=== PATIENT | male | born 2000 | race Caucasian/White ===

== ENCOUNTER 2020-05-01 12:23 | Inpatient (IN) ==
[2020-05-01] MEDS ORDERED: ONDANSETRON INJ 2 MG/ML 2 ML VIAL IV STA ×3 (12:49→18:23)
[2020-05-01] MEDS ORDERED: SODIUM CHLORIDE 0.9% 1000ML 2,000 ML IV ONE (12:49)
--- NOTE | 2020-05-01 12:52 | Emergency Department Note ---
Impression & Plan Pneumomediastinum, Vomiting, Acute hypokalemia, MIGUELINA (acute kidney injury), Leukocytosis, Pneumothorax ED Provider Note NAME: DARRICK PIERCE AGE: 19 SEX: M : 2000 ARRIVES VIA: Walk-In INFORMANT: Patient ED PROVIDER(S): Albert Calvin DO CHIEF COMPLAINT: Nausea vomiting HPI: Patient is a 19-year-old male with no significant past medical or past surgical history who presents the ER for nausea and vomiting. This started Friday morning. He notes Friday night he drank over 15 beers. When he woke up he was having persistent vomiting. This has continued. He has been unable to keep down liquids. He denies any belly pain. He notes he is vomiting up bile or anything that he eats or drinks. Denies any dysuria, urgency or frequency. No belly pain but significant amount of nausea. No previous surgeries on his belly. Denies any cough or runny nose. Admits to a sore throat but this is consistent with the vomiting. No other exacerbating or araceli tting factors. ROS: See above HPI for pertinent positives & negatives. A total of 10 systems reviewed and were otherwise negative. PAST MEDICAL HISTORY:See Below PAST SURGICAL HISTORY:See Below FAMILY HISTORY:See Below SOCIAL HISTORY:See Below HOME MEDICATIONS:See Below ALLERGIES:See Below VITALS:See Below PHYSICAL EXAMINATION: GENERAL: Sitting up in bed, alert, well appearing, well nourished, no distress, non-toxic EYE EXAM: normal conjunctiva. OROPHARYNX: no exudate, no erythema, lips, buccal mucosa, and tongue normal and mucous membranes are moist NECK: supple, no nuchal rigidity, no adenopathy, non-tender LUNGS: Clear to auscultation. Normal chest wall mechanics HEART: no murmurs, S1 normal and S2 normal ABDOMEN: abdomen soft, non-tender, normo-active bowel sounds, no masses, no rebound or guarding. BACK: Back is symmetrical on inspection and there is no deformity, no midline tenderness, no CVA tenderness. SKIN: no rashes and no bruising UPPER EXTREMITIES: upper extremities are grossly normal. LOWER EXTREMITIES: No pitting edema. NEURO EXAM: Normal sensorium, cranial nerves II-XII grossly intact, normal speech, no gross weakness of arms, no gross weakness of legs. MEDICAL DECISION MAKING: Patient is a 19-year-old male who presents the ER for persistent vomiting. He is unable to keep anything down. This been present since this past Friday. IV was established blood work was obtained. Labs show leukocytosis 21,000. No significant anemia. BMP with hyponatremia 134 and hypokalemia 3.2. Chloride also slightly low at 92. Creatinine elevated 1.6 but nothing to compare to. Fevers baseline likely around 0.81. Bilirubin of 1.1. Calcium slightly elevated 10.9. Lipase was normal. UA was clean. CT abdomen pelvis was obtained and showed pneumomediastinum. Chest x-ray confirmed this with a questionable pneumothorax. Discussed with Dr. Bautista from [place] [facility]. He recommended Gastrografin swallow as well as CT of the chest. This was performed and showed no esophageal injury. We discussed the case with him and he was comfortable keeping him in the hospital. He recommended placing him on nonrebreather and admitting him to medicine and they will further evaluate him. Discussed the case with Dylan Gomez from gastroenterology. They will follow him up as an inpatient and he recommended a PPI. Patient was given a total of 4 L of normal saline. He was covered with IV Zosyn initially and given IV vitamin K. He was updated bedside on multiple occasions and discussed with the hospitalist for further evaluation. Patient notes after nonrebreather was placed that he cannot wear it and is too uncomfortable. He was placed on 5 L nasal cannula instead. He was placed on nonrebreather and not secondary to hyp oxia but for treatment of the pneumothoraces. Triage Nursing notes reviewed. Prior medical records reviewed Vital Signs: reviewed and remarkable for tachycardic Differential diagnosis: Differential diagnoses includes but is not limited to gastritis, peptic ulcer disease, GERD, gallbladder disease, pancreatitis, small bowel obstruction, acute coronary syndrome, pericarditis, ischemic bowel, irritable bowel disease, irritable bowel syndrome, appendicitis, diverticulitis, malignancy, hernia, urinary tract infection, torsion, perforation, trauma, infectious. ER treatment provided: See below Diagnostics interpreted by me: ECG: none Cardiac Monitoring: An order was placed for continuous cardiac monitoring. The monitor shows a rate of 83 with sinus rhythm. Laboratory studies: As stated above and show below. Imaging studies: CTs chest x-rays as discussed above in the MDM Consultation(s): Discussed with Dr. Bautista as stated above in MDM Discussed with Dr. Dylan Gomez from gastroenterology has stated above Discussed with Dr. Palomo from [facility] hospitalist ED COURSE: Procedures: none Past Med/Surg History Social History Smoking Status: Never smoker Preferred Language: Telugu Feels Safe at Home: Yes Allergies Allergies Allergy/AdvReac Type Severity Reaction Status Date / Time No Known Allergies Allergy Unverified 05/01/20 14:53 Home Meds Home Medications Medication Instructions Recorded Confirmed No Known Home Medications 05/01/20 05/01/20 Results & Data (ED) Vital Signs Vital Signs - 24 hr 05/01/20 12:26 05/01/20 13:26 05/01/20 13:29 Temperature 36.9 C Temperature Source Oral Pulse Rate 122 H 87 85 Pulse Rate [Finger] 93 H Pulse Rate from SpO2 Sensor 86 85 Respiratory Rate 18 17 11 L Respiratory Effort / Characteristics Non-Labored Spontaneous Non-Labored Spontaneous Respiratory Depth Normal Normal Respiratory Pattern Regular Regular Blood Pressure 129/86 140/81 Blood Pressure [Left Arm] 140/81 Blood Pressure Mean 100 96 Blood Pressure Mean [Left Arm] 100 Blood Pressure Position Sitting Pulse Oximetry 96 96 94 Oxygen Delivery Method Room Air Room Air Room Air Oxygen Flow Rate Sepsis Recent Fever Within 48 Hours No Sepsis New/Unexplained Change in Mental Status N/A Sepsis Action Taken by Nursing No Action Required 05/01/20 13:30 05/01/20 13:40 05/01/20 13:50 Temperature Temperature Source Pulse Rate 74 79 91 H Pulse Rate [Finger] Pulse Rate from SpO2 Sensor 74 83 85 Respiratory Rate 16 14 15 Respiratory Effort / Characteristics Respiratory Depth Respiratory Pattern Blood Pressure 154/76 H Blood Pressure [Left Arm] Blood Pressure Mean 105 Blood Pressure Mean [Left Arm] Blood Pressure Position Pulse Oximetry 98 95 97 Oxygen Delivery Method Room Air Room Air Room Air Oxygen Flow Rate Sepsis Recent Fever Within 48 Hours Sepsis New/Unexplained Change in Mental Status Sepsis Action Taken by Nursing 05/01/20 14:00 05/01/20 14:10 05/01/20 14:20 Temperature Temperature Source Pulse Rate 87 89 84 Pulse Rate [Finger] Pulse Rate from SpO2 Sensor 87 88 84 Respiratory Rate 13 14 20 Respiratory Effort / Characteristics Respiratory Depth Respiratory Pattern Blood Pressure 121/75 Blood Pressure [Left Arm] Blood Pressure Mean 106 Blood Pressure Mean [Left Arm] Blood Pressure Position Pulse Oximetry 98 99 97 Oxygen Delivery Method Room Air Room Air Room Air Oxygen Flow Rate Sepsis Recent Fever Within 48 Hours Sepsis New/Unexplained Change in Mental Status Sepsis Action Taken by Nursing 05/01/20 15:16 05/01/20 15:18 05/01/20 15:20 Temperature Temperature Source Pulse Rate 93 H 96 H 84 Pulse Rate [Finger] Pulse Rate from SpO2 Sensor Respiratory Rate 12 16 17 Respiratory Effort / Characteristics Respiratory Depth Respiratory Pattern Blood Pressure 141/80 H Blood Pressure [Left Arm] Blood Pressure Mean 106 Blood Pressure Mean [Left Arm] Blood Pressure Position Pulse Oximetry Oxygen Delivery Method Room Air Room Air Room Air Oxygen Flow Rate Sepsis Recent Fever Within 48 Hours Sepsis New/Unexplained Change in Mental Status Sepsis Action Taken by Nursing 05/01/20 15:30 05/01/20 15:40 05/01/20 15:50 Temperature Temperature Source Pulse Rate 90 75 69 Pulse Rate [Finger] Pulse Rate from SpO2 Sensor Respiratory Rate 13 18 12 Respiratory Effort / Characteristics Respiratory Depth Respiratory Pattern Blood Pressure 142/67 H Blood Pressure [Left Arm] Blood Pressure Mean 100 Blood Pressure Mean [Left Arm] Blood Pressure Position Pulse Oximetry Oxygen Delivery Method Room Air Room Air Room Air Oxygen Flow Rate Sepsis Recent Fever Within 48 Hours Sepsis New/Unexplained Change in Mental Status Sepsis Action Taken by Nursing 05/01/20 16:08 05/01/20 16:10 05/01/20 16:13 Temperature Temperature Source Pulse Rate 86 93 H 67 Pulse Rate [Finger] Pulse Rate from SpO2 Sensor 96 H 72 Respiratory Rate 8 L 15 17 Respiratory Effort / Characteristics Respiratory Depth Respiratory Pattern Blood Pressure 134/52 L Blood Pressure [Left Arm] Blood Pressure Mean 95 Blood Pressure Mean [Left Arm] Blood Pressure Position Pulse Oximetry 98 96 Oxygen Delivery Method Room Air Room Air Room Air Oxygen Flow Rate Sepsis Recent Fever Within 48 Hours Sepsis New/Unexplained Change in Mental Status Sepsis Action Taken by Nursing 05/01/20 16:20 05/01/20 16:30 05/01/20 16:40 Temperature Temperature Source Pulse Rate 81 68 72 Pulse Rate [Finger] Pulse Rate from SpO2 Sensor 83 69 69 Respiratory Rate 20 17 24 Respiratory Effort / Characteristics Respiratory Depth Respiratory Pattern Blood Pressure 131/66 Blood Pressure [Left Arm] Blood Pressure Mean 83 Blood Pressure Mean [Left Arm] Blood Pressure Position Pulse Oximetry 98 98 97 Oxygen Delivery Method Room Air Room Air Room Air Oxygen Flow Rate Sepsis Recent Fever Within 48 Hours Sepsis New/Unexplained Change in Mental Status Sepsis Action Taken by Nursing 05/01/20 16:50 05/01/20 16:51 Temperature Temperature Source Pulse Rate 85 Pulse Rate [Finger] Pulse Rate from SpO2 Sensor 82 Respiratory Rate 17 Respiratory Effort / Characteristics Respiratory Depth Respiratory Pattern Blood Pressure Blood Pressure [Left Arm] Blood Pressure Mean Blood Pressure Mean [Left Arm] Blood Pressure Position Pulse Oximetry 99 Oxygen Delivery Method Room Air Non-rebreather Oxygen Flow Rate 15 Sepsis Recent Fever Within 48 Hours Sepsis New/Unexplained Change in Mental Status Sepsis Action Taken by Nursing Laboratory Data Result diagrams: 05/01/20 12:55 05/01/20 12:55 Lab Results 05/01/20 05/01/20 05/01/20 Range/Units 12:55 12:55 14:30 WBC 21.57 H (4.8-10.8) K/uL RBC 6.00 (4.7-6.1) M/uL Hgb 17.9 (14.0-18.0) g/dL Hct 50.3 (42-52) % MCV 83.8 (80-100) fL MCH 29.8 (25-34) pg MCHC 35.6 (32-36) g/dL RDW Std Deviation 39.4 (36.4-46.3) fL RDW Coeff of Jan 13.0 (11.5-14.5) % Plt Count 340 (130-400) K/uL MPV 10.8 H (7.4-10.4) fL Neutrophils % (Manual) 86.0 % Lymphocytes % (Manual) 2.6 % Monocytes % (Manual) 11.4 % Neutrophils # (Manual) 18.55 H (1.4-6.5) K/uL Total Absolute Neuts 18.55 H (1.4-6.5) K/uL Lymphocytes # (Manual) 0.56 L (1.2-3.4) K/uL Total Abs Lymphocytes 0.56 L (1.2-3.4) K/uL Monocytes # (Manual) 2.46 H (0.11-0.59) K/uL Sodium 134 L (136-145) mmol/L Potassium 3.2 L (3.5-5.1) mmol/L Chloride 92 L (98-107) mmol/L Carbon Dioxide 31 (21-32) mmol/L Anion Gap 11.0 (3-11) BUN 37 H (7-18) mg/dl Creatinine 1.61 H (0.6-1.4) mg/dl Est Cr Clr Drug Dosing 68.7 ml/min Est GFR ( Amer) 70.8 Est GFR (Non-Af Amer) 61.1 BUN/Creatinine Ratio 23.2 H (10-20) Glucose 147 H (70-99) mg/dl Calcium 10.8 H (8.5-10.1) mg/dl Total Bilirubin 1.1 H (0.2-1) mg/dl AST 15 (15-37) U/L ALT 31 (12-78) U/L Alkaline Phosphatase 120 H (45-117) U/L Total Protein 9.5 H (6.4-8.2) gm/dl Albumin 5.5 H (3.4-5.0) gm/dl Globulin 4.0 (2.5-4.0) gm/dl Albumin/Globulin Ratio 1.4 (0.9-2) Lipase 95 (73-393) U/L Urine Color Yellow Urine Appearance Clear (Clear) Urine pH >= 9.0 H (4.5-7.5) Ur Specific [place] 1.026 (1.000-1.030) Urine Protein 2+ H (Negative) Urine Glucose (UA) Negative (Negative) Urine Ketones 1+ H (Negative) Urine Blood Negative (Negative) Urine Nitrite Negative (Negative) Urine Bilirubin Negative (Negative) Urine Urobilinogen Negative (Negative) Ur Leukocyte Esterase Negative (Negative) Urine WBC (Auto) 1-5 (0-5) /hpf Urine RBC (Auto) 0-4 (0-4) /hpf U Hyaline Cast (Auto) 1-5 (0-5) /lpf U Epithel Cells (Auto) 5-10 H (0-5) /lpf Urine Bacteria (Auto) Negative (Negative) Administered Medications Miscellaneous Information (Piperacill/Tazobac Consult Active) 1 ea N/A UD PRN PRN Reason: Consult Stop: 05/31/20 15:20 Last Admin: 05/01/20 15:50 Dose: 1 ea Documented by: [id number] Discontinued Medications Sodium Chloride (Nss 1000ml) 2,000 mls @ 999 mls/hr IV .Q2H1M ONE Stop: 05/01/20 14:49 Last Infusion: 05/01/20 15:45 Dose: 0 mls/hr Documented by: [id number] Admin: 05/01/20 13:24 Dose: 999 mls/hr Documented by: [id number] Sodium Chloride (Nss 1000ml) 1,000 mls @ 999 mls/hr IV .Q1H1M ONE Stop: 05/01/20 15:47 Last Infusion: 05/01/20 17:05 Dose: 0 mls/hr Documented by: [id number] Admin: 05/01/20 15:50 Dose: 999 mls/hr Documented by: [id number] Piperacillin Sod/Tazobactam Sod (Zosyn) 4.5 gm in 120 mls @ 240 mls/hr IV NOW ONE Stop: 05/01/20 15:50 Last Admin: 05/01/20 16:41 Dose: 240 mls/hr Documented by: [id number] Ioversol (Ioversol 100ml) 94 ml IV ONCE ONE Stop: 05/01/20 15:11 Last Admin: 05/01/20 15:10 Dose: 94 ml Documented by: [id number] Ondansetron HCl (Ondansetron Inj 2 Mg/Ml 2 Ml Vial) 4 mg IV NOW STA Stop: 05/01/20 12:50 Last Admin: 05/01/20 13:24 Dose: 4 mg Documented by: [id number] Ondansetron HCl (Ondansetron Inj 2 Mg/Ml 2 Ml Vial) 4 mg IV NOW STA Stop: 05/01/20 15:45 Last Admin: 05/01/20 15:50 Dose: 4 mg Documented by: [id number] Discharge Plan Visit Data Chief Complaint: Vomiting Stated Complaint: VOMITING AND CHILLS ED Provider: Albert Calvin Discharge Problem: Pneumomediastinum, Vomiting, Acute hypokalemia, MIGUELINA (acute kidney injury), Leukocytosis, Pneumothorax Forms Stand Alone Forms: [employer] Prescriptions Prescriptions: No Action No Known Home Medications RF: 0 Discharge Problem: Vomiting Qualifiers: Vomiting type: unspecified Vomiting Intractability: unspecified Nausea presence: unspecified Qualified Code(s): R11.10 - Vomiting, unspecified Leukocytosis Qualifiers: Leukocytosis type: unspecified Qualified Code(s): D72.829 - Elevated white blood cell count, unspecified Pneumothorax Qualifiers: Pneumothorax type: unspecified pneumothorax Qualified Code(s): J93.9 - Pneumothorax, unspecified
[2020-05-01 13:12] LABS: Mean Corpuscular Hgb Conc 35.6 g/dL (32-36); Mean Platelet Volume 10.8 fL (7.4-10.4); Platelet Count 340 K/uL (130-400)
[2020-05-01 13:35] LABS: ALC (manual) 0.56 K/uL (1.2-3.4); ANC (manual) 18.55 K/uL (1.4-6.5); Hematocrit (blood only) 50.3 % (42-52); Hemoglobin 17.9 g/dL (14.0-18.0); Lymphocytes # (manual) 0.56 K/uL (1.2-3.4); Lymphocytes % (manual) 2.6 %; Mean Corpuscular Hemoglobin 29.8 pg (25-34); Mean Corpuscular Volume 83.8 fL (80-100); Monocytes # (manual) 2.46 K/uL (0.11-0.59); Monocytes % (manual) 11.4 %; Neutrophils # (manual) 18.55 K/uL (1.4-6.5); RDW Standard Deviation 39.4 fL (36.4-46.3); White Blood Count 21.57 K/uL (4.8-10.8)
[2020-05-01 13:47] LABS: Albumin Level 5.5 gm/dl (3.4-5.0); BUN Creatinine Ratio 23.2 (10-20); Calcium 10.8 mg/dl (8.5-10.1); Creatinine Clr Calc Pharmacy 68.7 ml/min; Est GFR (African American) 70.8; Est GFR (Non-African American) 61.1; Potassium 3.2 mmol/L (3.5-5.1)
[2020-05-01 13:50] LABS: Albumin Globulin Ratio 1.4 (0.9-2); Bilirubin,Total 1.1 mg/dl (0.2-1); Total Protein 9.5 gm/dl (6.4-8.2)
[2020-05-01] MEDS ORDERED: SODIUM CHLORIDE 0.9% 1000ML 1,000 ML IV ONE (14:47)
[2020-05-01 15:00] LABS: Appearance Urine Clear (Clear); Bacteria Urine Automated Negative (Negative); Bilirubin Urine Negative (Negative); Blood Urine Negative (Negative); Color Urine Yellow; Glucose Urine UA Negative (Negative); Ketones Urine 1+ (Negative); Leukocyte Esterase Urine Negative (Negative); Nitrite Urine Negative (Negative); RBC Urine Automated 0-4 /hpf (0-4); Specific Gravity Urine 1.026 (1.000-1.030); Urobilinogen Urine Negative (Negative); pH Urine >= 9.0 (4.5-7.5)
[2020-05-01 15:01] LABS: Protein Urine 2+ (Negative)
[2020-05-01 15:03] LABS: Sulfosalicylic Acid Urine Positive (Negative)
[2020-05-01] MEDS ORDERED: IOVERSOL 100ml IV ONE (15:10)
--- NOTE | 2020-05-01 15:16 | XRay Report ---
XR chest 1V not portable HISTORY: vomiting COMPARISON: Abdomen and pelvis CT 05/01/2020. FINDINGS: Pneumomediastinum with subcutaneous emphysema within the neck base and supraclavicular zarina ons. Tiny right apical pneumothorax with a pleural gap of 6 mm. This is likely secondary to extension of the pneumomediastinum. The heart is normal in size. The lungs are clear. No pleural effusions. No rib fractures. IMPRESSION: 1. Pneumomediastinum with subcutaneous emphysema at the neck base. 2. Tiny right apical pneumothorax. This is likely secondary to the extension of gas from the pneumome diastinum. ACT 112: Negative or not required by law. Electronically signed by: Martinez Rodriguez M.D. 05/01/2020 3:15 PM
[2020-05-01] MEDS ORDERED: PIPERACILLIN/TAZOBACTAM 4.5 GM/120 ML BAG IV ONE (15:21)
[2020-05-01] MEDS ORDERED: PIPERACILL/TAZOBAC CONSULT ACTIVE PRN (15:21)
--- NOTE | 2020-05-01 15:27 | CT Scan Report ---
ABDOMEN AND PELVIS CT WITH IV CONTRAST CT DOSE: 376.18 mGycm HISTORY: Acute generalized abdominal pain with nausea and vomiting abd pain vomiting wbc 21k TECHNIQUE: Multiaxial CT images of the abdomen and pelvis were performed following the IV administrat ion of 94 cc of Optiray 320, A dose lowering technique was utilized adhering to the principles of AL RANDALL. COMPARISON STUDY: Chest radiograph of same day FINDINGS: No pleural effusion. Partially imaged pneumomediastinum. 3 mm linear subpleural nodule of the right m iddle lobe, likely benign. No pneumatosis or pneumoperitoneum. Subcutaneous gas along the left anteri or chest wall. The imaged inferior cardiac chambers are unremarkable. Spleen, pancreas, adrenal glands, gallbladder and liver appear unremarkable. Patency of the hepatic a nd portal veins. Kidneys appear normal. Moderate bladder wall thickening with partial distention. Aor ta and IVC are unremarkable. There is no adenopathy. There is mild nonspecific distal esophageal wall thickening. Mild rectal wall thickening, likely seco ndary to partial distention. Partial distention of the large bowel. Noninflamed appendix. Tiny fat fi lled umbilical hernia. Bones appear intact. No acute fracture. IMPRESSION: 1. Partially imaged pneumomediastinum with subcutaneous gas along the left anterior chest wall. There is no pneumatosis or pneumoperitoneum. 2. No bowel obstruction or bowel wall thickening. Normal appendix. 3. Minimal distal esophageal wall thickening. ACT 112: Negative or not required by law. The above report was generated using voice recognition software. It may contain grammatical, syntax o r spelling errors. Electronically signed by: Gabriel Evans M.D. 05/01/2020 3:25 PM
--- NOTE | 2020-05-01 16:23 | CT Scan Report ---
CT chest wo con CT DOSE: 337.04 mGy.cm CLINICAL HISTORY: 19 years-old Male with ? ruptured esophagus. Follow up study in a patient with pne umomediastinum. TECHNIQUE: Multiaxial CT images of the chest were performed without IV contrast. A small amount of [place] strografin was ingested by the patient to evaluate the esophagus. A dose lowering technique was utili zed adhering to the principles of ALARA. COMPARISON: CT abdomen and pelvis and chest radiograph of same day FINDINGS: Unremarkable thyroid. No pathologic adenopathy. Heart is normal in size. No thoracic aortic aneurysm. There is a large amount of pneumomediastinum with deep tissue air tracking into the supraclavicular distributions, neck and submandibular regions as well as into the left paraspinal tissues, epidural t issues and anterior chest wall. Small right apical pneumothorax is also noted with pleural separation measuring up to 6 mm. Tiny left-sided pneumothorax is also noted with pleural separation of a few mi llimeters. No pleural effusion, airspace consolidation or overt pulmonary edema. No discrete tracheob ronchial injury identified. Contrast is noted within the esophagus. No contrast extravasation to suggest rupture. There is no sig nificant esophageal wall thickening. Soft tissues of the chest are unremarkable. The bones appear int act. No acute fracture. IMPRESSION: 1. Large amount of pneumomediastinum with deep tissue air tracking into the neck, supraclavicular and submandibular distributions distributions, anterior chest wall, paraspinal and central canal distrib utions of the upper thorax. Additionally, there are small bilateral pneumothoraces, likely secondary to extension of the pneumomediastinum. No definite tracheobronchial or esophageal injury identified. 2. No pleural effusion. ACT 112: Negative or not required by law. Electronically signed by: Gabriel Evans M.D. 05/01/2020 4:22 PM
[2020-05-01] MEDS ORDERED: NORMOSOL-R 1,000 ML IV ONE (16:52)
[2020-05-01] MEDS: POTASSIUM CHLORIDE / WTR 10 MEQ/100 ML PLCT IV SCH ×2 (17:32→19:02)
--- NOTE | 2020-05-01 17:55 | History & Physical Report ---
Date of Service May 01, 2020 Assessment & Plan (1) Pneumomediastinum: 19-year-old male with no significant past medical history presents with concerns of vomiting found to have pneumomediastinum on chest imaging. Uncomplicated spontaneous pneumomediastinum CXR: Pneumomediastinum with subcutaneous emphysema at the neck base. Tiny right apical pneumothorax. This is likely secondary to the extension of gas from the pneumomediastinum. Chest CT: Large amount of pneumomediastinum with deep tissue air tracking into the neck, supraclavicular and submandibular distributions distributions, anterior chest wall, paraspinal and central canal distributions of the upper thorax. Additionally, there are small bilateral pneumothoraces, likely secondary to extension of the pneumomediastinum. No definite tracheobronchial or esophageal injury identified. SPM likely secondary to vigorous vomiting We will manage conservatively with analgesia, rest, and avoidance of maneuvers that will increase pulmonary pressure (coughing, emesis). - scheduled 100 mg tessalon perles - scheduled zofran 4 mg IV sched Supplemental O2 to maintain saturations. Patient currently on nonrebreather at 15 L/min ABG showing respiratory alkalosis. ph 7.51, Co2 29 Repeat chest x-ray in a.m. Pulmonology consult appreciated Hypokalemia Secondary to large amounts of emesis We will replete as necessary. Patient received IV KCl 20 mEq in ED - f/u BMP 8 pm BMP daily MIGUELINA Prerenal secondary to dehydration from emesis Creatinine 1.61 on admission Patient received NSS 3 L in ED Daily BMP FEN/GI: clear liquid diet, PPI daily, 1/2 NS + 20 Kcl @125 ml/hr DVT prophylaxis: low risk, ambulate PRN CODE STATUS: Full code Dispo: Med/surg with tele History of Present Illness 19-year-old male with no past medical history presents to the ER after having severe episodes of vomiting that started yesterday morning. States the night before he had had approximately 15 beers when he normally drinks approximately 8-10. He woke up and had multiple episodes of nonbloody nonbilious emesis and was not able to keep any food or water down. He denies knowledge of any sick contacts. Denies any diarrhea or abdominal pain. He states he still feels nauseous. Has not had any episodes like this before. Of note he denies any shortness of breath or trouble breathing that he noticed prior to coming to the ER. He does note that he has central chest pain that started after his episodes of emesis. He describes this pain as initially being sharp and stabbing but has now progressed to a dull pain. He says it does not radiate anywhere and is located centrally by his mid sternum. He says the pain is increased when he tries to take a deep breath. ED course significant for CTAbdomen and pelvis showing partially imaged pneumomediastinum with subcutaneous counseling left anterior chest wall without pneumatosis or pneumoperitoneum. No bowel obstruction or bowel wall thickening. Minimal distal esophageal wall thickening. Chest x-ray confirmed pneumomediastinum and showed a small right apical pneumothorax. CT chest showing a large amount of pneumomediastinum with deep tissue air tracking into the neck supraclavicular and submandibular distributions, anterior chest wall, paraspinal and central canal distributions of the upper thorax. Small bilateral pneumothoraces secondary to the extension of pneumomediastinum. No tracheobronchial or esophageal injury identified. Patient started on Zosyn and placed on 15 L of oxygen via nonrebreather. He will be admitted for evaluation of the pneumomediastinum. Primary Care Provider: NO PCP Allergies Allergy/AdvReac Type Severity Reaction Status Date / Time No Known Allergies Allergy Unverified 05/01/20 14:53 Home Medications Home Medications Medication Instructions Recorded Confirmed Type No Known Home Medications 05/01/20 05/01/20 History Past Med/Surg History Medical History (Updated 05/01/20 @ 17:51 by Nettie Clarke MD) No chronic problems No pertinent family history Surgical History (Updated 05/01/20 @ 17:51 by Nettie Clarke MD) No significant past surgical history Social History (Updated 05/01/20 @ 17:52 by Nettie Clarke MD) Smoking Status: Never smoker Hx Alcohol Use: Yes (8-10 beers weekly) Alcohol type: beer Hx Substance Use: Yes (weekly) Prescribed Medications: Marijuana Preferred Language: Czech current occupational status: student Feels Safe at Home: Yes Review of Systems Constitutional: + chills; no fever, no sweats and no fatigue Ear, Nose, Mouth, Throat: no sore throat and no hoarseness Respiratory: + pain on inspiration; no cough and no dyspnea Cardiovascular: + chest pain; no radiating jaw, neck or arm pain, no dyspnea, no palpitations and no lightheadedness Physical Exam Physical Exam: Constitutional: thin, in no apparent distress, sitting comfortably in bed. Eyes: EOMI, pupils equal and reactive bilaterally, no scleral icterus Face: flushed Cardiac: RRR, no murmurs, gallops or rubs. Normal S1, S2. Audible rub at LL sternal border from pneumomediastinum. Pulm: CTA BL, no wheezes, rhonchi, crackles or rubs, moving air well throughout both lungs Abd: soft, nontender, nondistended, normal bowel sounds, no rebound or guarding Extremities: 2+ peripheral pulses, no edema Skin: 3 circumscribed small rashes, dry, flat, papular, Neuro: no focal deficits, moving all 4 limbs, A&Ox3 Results & Data Results & Data ([facility]) Vital Signs (Past 12 Hours) Vital Signs Temp Pulse Pulse Resp BP BP Pulse Ox 05/01/20 16:50 85 17 99 05/01/20 16:40 72 24 97 05/01/20 16:30 68 17 131/66 98 05/01/20 16:20 81 20 98 05/01/20 16:13 67 17 134/52 L 96 05/01/20 16:10 93 H 15 98 05/01/20 16:08 86 8 L 05/01/20 15:50 69 12 05/01/20 15:40 75 18 05/01/20 15:30 90 13 142/67 H 05/01/20 15:20 84 17 05/01/20 15:18 96 H 16 05/01/20 15:16 93 H 12 141/80 H 05/01/20 14:20 84 20 97 05/01/20 14:10 89 14 99 05/01/20 14:00 87 13 121/75 98 05/01/20 13:50 91 H 15 97 05/01/20 13:40 79 14 95 05/01/20 13:30 74 16 154/76 H 98 05/01/20 13:29 85 11 L 94 05/01/20 13:26 87 93 H 17 140/81 140/81 96 05/01/20 12:26 36.9 C 122 H 18 129/86 96 Laboratory Results WBC 21.57 K/uL (4.8-10.8) H 05/01/20 12:55 RBC 6.00 M/uL (4.7-6.1) 05/01/20 12:55 Hgb 17.9 g/dL (14.0-18.0) 05/01/20 12:55 Hct 50.3 % (42-52) 05/01/20 12:55 MCV 83.8 fL (80-100) 05/01/20 12:55 MCH 29.8 pg (25-34) 05/01/20 12:55 MCHC 35.6 g/dL (32-36) 05/01/20 12:55 RDW Std Deviation 39.4 fL (36.4-46.3) 05/01/20 12:55 RDW Coeff of Jan 13.0 % (11.5-14.5) 05/01/20 12:55 Plt Count 340 K/uL (130-400) 05/01/20 12:55 MPV 10.8 fL (7.4-10.4) H 05/01/20 12:55 Neutrophils % (Manual) 86.0 % 05/01/20 12:55 Lymphocytes % (Manual) 2.6 % 05/01/20 12:55 Monocytes % (Manual) 11.4 % 05/01/20 12:55 Neutrophils # (Manual) 18.55 K/uL (1.4-6.5) H 05/01/20 12:55 Total Absolute Neuts 18.55 K/uL (1.4-6.5) H 05/01/20 12:55 Lymphocytes # (Manual) 0.56 K/uL (1.2-3.4) L 05/01/20 12:55 Total Abs Lymphocytes 0.56 K/uL (1.2-3.4) L 05/01/20 12:55 Monocytes # (Manual) 2.46 K/uL (0.11-0.59) H 05/01/20 12:55 ABG pH 7.51 (7.35-7.45) H* 05/01/20 17:40 ABG pCO2 29 mmHg (35-46) L 05/01/20 17:40 ABG pO2 166 mmHg (80-95) H 05/01/20 17:40 ABG HCO3 22 mmol/L (19-24) 05/01/20 17:40 ABG O2 Saturation 99.4 % (90-95) H 05/01/20 17:40 ABG Base Excess 0.4 mEq/L (-9-1.8) 05/01/20 17:40 Tim Test Pos (Pos) 05/01/20 17:40 Barometric Pressure 735.0 mm/Hg 05/01/20 17:40 Oxygen Given 5 L 05/01/20 17:40 Sodium 134 mmol/L (136-145) L 05/01/20 12:55 Potassium 3.2 mmol/L (3.5-5.1) L 05/01/20 12:55 Chloride 92 mmol/L (98-107) L 05/01/20 12:55 Carbon Dioxide 31 mmol/L (21-32) 05/01/20 12:55 Anion Gap 11.0 (3-11) 05/01/20 12:55 BUN 37 mg/dl (7-18) H 05/01/20 12:55 Creatinine 1.61 mg/dl (0.6-1.4) H 05/01/20 12:55 Est Cr Clr Drug Dosing 68.7 ml/min 05/01/20 12:55 Est GFR ( Amer) 70.8 05/01/20 12:55 Est GFR (Non-Af Amer) 61.1 05/01/20 12:55 BUN/Creatinine Ratio 23.2 (10-20) H 05/01/20 12:55 Glucose 147 mg/dl (70-99) H 05/01/20 12:55 Calcium 10.8 mg/dl (8.5-10.1) H 05/01/20 12:55 Total Bilirubin 1.1 mg/dl (0.2-1) H 05/01/20 12:55 AST 15 U/L (15-37) 05/01/20 12:55 ALT 31 U/L (12-78) 05/01/20 12:55 Alkaline Phosphatase 120 U/L (45-117) H 05/01/20 12:55 Total Protein 9.5 gm/dl (6.4-8.2) H 05/01/20 12:55 Albumin 5.5 gm/dl (3.4-5.0) H 05/01/20 12:55 Globulin 4.0 gm/dl (2.5-4.0) 05/01/20 12:55 Albumin/Globulin Ratio 1.4 (0.9-2) 05/01/20 12:55 Lipase 95 U/L (73-393) 05/01/20 12:55 Urine Color Yellow 05/01/20 14:30 Urine Appearance Clear (Clear) 05/01/20 14:30 Urine pH >= 9.0 (4.5-7.5) H 05/01/20 14:30 Ur Specific Alexander 1.026 (1.000-1.030) 05/01/20 14:30 Urine Protein 2+ (Negative) H 05/01/20 14:30 Urine Glucose (UA) Negative (Negative) 05/01/20 14:30 Urine Ketones 1+ (Negative) H 05/01/20 14:30 Urine Blood Negative (Negative) 05/01/20 14:30 Urine Nitrite Negative (Negative) 05/01/20 14:30 Urine Bilirubin Negative (Negative) 05/01/20 14:30 Urine Urobilinogen Negative (Negative) 05/01/20 14:30 Ur Leukocyte Esterase Negative (Negative) 05/01/20 14:30 Urine WBC (Auto) 1-5 /hpf (0-5) 05/01/20 14:30 Urine RBC (Auto) 0-4 /hpf (0-4) 05/01/20 14:30 U Hyaline Cast (Auto) 1-5 /lpf (0-5) 05/01/20 14:30 U Epithel Cells (Auto) 5-10 /lpf (0-5) H 05/01/20 14:30 Urine Bacteria (Auto) Negative (Negative) 05/01/20 14:30 Urine Opiates Screen Neg (Neg) 05/01/20 14:52 Ur Methadone, Qual Neg (Neg) 05/01/20 14:52 Urine Barbiturates Neg (Neg) 05/01/20 14:52 Ur Phencyclidine (PCP) Neg (Neg) 05/01/20 14:52 U Amphetamin/Meth Scrn Neg (Neg) 05/01/20 14:52 MDMA (Ecstasy) Screen Neg (Neg) 05/01/20 14:52 U Benzodiazepines Scrn Neg (Neg) 05/01/20 14:52 Ur Cocaine Metabolite Neg (Neg) 05/01/20 14:52 U Marijuana (THC) Screen Pos (Neg) H 05/01/20 14:52 Ethyl Alcohol mg/dL < 3.0 mg/dl (0-3) 05/01/20 18:12 COVID-19 Eval Order Covid19 Done at [facility] 05/01/20 18:00 COVID-19 PCR NEGATIVE (Negative) 05/01/20 18:00 Code Status & VTE Plan Code Status Full Supervising Physician Co-Signing Physician Notes Attending attestation Pt seen and examined in concert with Dr. Clarke. In agreement with the documented findings as noted in the resident documentation with any exceptions or additions as noted here. Pt reports gradual improvement of persistent central chest pain now described as an ache which does worsen with deep inspiration as well as a persistent nausea which was temporarily ameliorated at ~3:30 with last dose of ondansetron 4mg. On examination, S1/S2 nl RRR no MCG. CTAB with the noted exception of crackling which is audible in time with heartbeat in the area c/w pneumomediastinum. Abd NT/ND BS+ve. Mild well circumscribed nontender erythematous punctum rash of the right AC fossa at sites of IV attempts/lab draws. Diffuse flushing apparent. Uncomplicated spontaneous pneumomediastinum - GI and pulmonology consultation appreciated - continue O2 supplementation and avoidance of exacerbating factors including nausea control as noted below. Repeat CXR tomorrow, sooner if warranted by clinical status Nausea/vomiting - ondansetron IV scheduled and can add further antiemetic th erapy as needed. PPI therapy. Alcohol abuse, acute - s/p electrolyte bag - 15+ twisted teas on ow - high school counselor on moderation, revisit tomorrow MIGUELINA - IV hydration, trend BMP in AM Hypokalemia - replete as noted Else see resident documentation as noted. Resident Activity Tracking Resident Involvement: Resident Care Provided Care Provided: Adult Hospital Medicine
[2020-05-01 18:05] LABS: Allen Test Pos (Pos)
--- NOTE | 2020-05-01 18:08 | Pulmonary Consultation ---
Date of Consultation May 01, 2020 Assessment & Plan (1) Pneumomediastinum: CT chest without contrast 05/01/2020 personally reviewed: starting from the Significant subcu emphysema appreciated upper neck going into the upper belly. There is significant pneumomediastinum appreciated. There is also lucency in the bilateral upper lobes I do not think this is pneumothorax this is most likely extension of the pneumomediastinum presenting as if.. No groundglass opacities appreciated. No mediastinal lymphadenopathy --Spontaneous pneumomediastinum Likely from retching Gastrografin did not extravasate into the pleural space the possibility of Boerhaave's is very low. Sofia-Hill tear is a possibility. Conservative management. Put the patient 100% nonrebreather. Avoid any measures which will increase intrathoracic pressure. Recommend no usage of high flow or BiPAP. Antitussive medication, antiemetics as needed Leukocytosis is likely reactive. No infiltrate appreciated on the CAT scan. Plan: Conservative management. Daily chest x-rays. Follow UDS and alcohol level. Please note the above document was generated using voice recognition software. It may contain grammatical, syntax or spelling errors.Any formal questions or concerns about the content, text or information contained within the body of this dictation should be directly addressed to the provider for clarification. History of Present Illness History of Present Illness 19-year-old male who presented to the ED because of multiple episodes of nausea and vomiting which started the day prior in the morning. The night prior to the starting of nausea and vomiting he had 15 beers. He usually drinks 8-10. Patient did complain of retrosternal chest pain at the time of examination. Denies any hemoptysis. No hematemesis. No recent travel history. He has been partying with friends. No diarrhea, no dysuria. He denies any shortness of breath. He does complain of pain in the retrosternal area when he takes deep breaths. In the ED patient had CT abdomen pelvis which showed pneumomediastinum. I spoke with ER doc and recommended to have CT chest with Gastrografin contrast to make sure there is no rupture of the esophagus. The CT chest was negative except for pneumomediastinum. Social history: Does marijuana and vaping. Positive alcohol use. Denies any other illicit drug use. No family history of any lung disease. No family history of pneumothoraces. Allergies Allergy/AdvReac Type Severity Reaction Status Date / Time No Known Allergies Allergy Unverified 05/01/20 14:53 Home Medications Home Medications Medication Instructions Recorded Confirmed Type No Known Home Medications 05/01/20 05/01/20 History Patient History Medical History (Updated 05/01/20 @ 17:51 by Nettie Clarke MD) No chronic problems No pertinent family history Surgical History (Updated 05/01/20 @ 17:51 by Nettie Clarke MD) No significant past surgical history Social History (Updated 05/01/20 @ 17:52 by Nettie Clarke MD) Smoking Status: Never smoker Hx Alcohol Use: Yes Alcohol type: beer Hx Substance Use: Yes Prescribed Medications: Marijuana Last Used Substance: Days (ago) Preferred Language: Pakistani Communication Ability: Effective District Recruiter Required: No Beliefs That Will Affect Care: None Current Living Situation: Other Current Living Situation Comment: [employer] current occupational status: student Other Information That Helps Us Care for You: No Feels Safe at Home: Yes Safety Concerns: Feels Safe At This Time Assistive Devices: None Review of Systems Review of Systems: All systems reviewed & are unremarkable except as noted in HPI & below Physical Exam Physical Exam: Constitutional: No acute distress HEENT: EOMI, PERRLA, subcu crepitus appreciated going anterior chest to the neck Respiratory system: Good air entry bilaterally, no wheeze, no rhonchi, no crackles CVS: S1-S2 positive, no murmurs or gallops Abdomen: Soft, nontender, nondistended, positive bowel sounds x4 Extremities: +2 pulses bilaterally radialis/ dorsalis pedis, no cyanosis, no edema Neuro: Awake alert oriented x3 Psych: Normal mood and affect G/U: No Hyman Skin: no rashes, warm and dry Lymphatic: no cervical or axillary lymphadenopathy Results & Data Results & Data ([facility]) Vital Signs (Past 12 Hours) Vital Signs Temp Pulse Pulse Resp BP BP Pulse Ox 05/01/20 16:50 85 17 99 05/01/20 16:40 72 24 97 05/01/20 16:30 68 17 131/66 98 05/01/20 16:20 81 20 98 05/01/20 16:13 67 17 134/52 L 96 05/01/20 16:10 93 H 15 98 05/01/20 16:08 86 8 L 05/01/20 15:50 69 12 05/01/20 15:40 75 18 05/01/20 15:30 90 13 142/67 H 05/01/20 15:20 84 17 05/01/20 15:18 96 H 16 05/01/20 15:16 93 H 12 141/80 H 05/01/20 14:20 84 20 97 05/01/20 14:10 89 14 99 05/01/20 14:00 87 13 121/75 98 05/01/20 13:50 91 H 15 97 05/01/20 13:40 79 14 95 05/01/20 13:30 74 16 154/76 H 98 05/01/20 13:29 85 11 L 94 05/01/20 13:26 87 93 H 17 140/81 140/81 96 05/01/20 12:26 36.9 C 122 H 18 129/86 96 05/01/20 12:55 05/01/20 12:55 PG Care Time/CCT Total # of Minutes Spent Total Time Spent with Patient: Total time spent is greater than 50% in coordination of care (as documented) at patient's floor/unit and/or counseling patient: Coding Level of Care Code 52143 Initial Inpt Care Lvl 3 Diagnoses Pneumomediastinum J98.2
[2020-05-01 18:09] LABS: PCO2 ABG 29 mmHg (35-46); PO2 ABG 166 mmHg (80-95)
[2020-05-01 18:10] LABS: Base Excess ABG 0.4 mEq/L (-9-1.8); HCO3 ABG 22 mmol/L (19-24); Oxygen Saturation ABG 99.4 % (90-95)
[2020-05-01 18:13] LABS: pH ABG 7.51 (7.35-7.45)
[2020-05-01 20:08] LABS: Amphetamines+Metham, Urine Neg (Neg); Barbiturates, Urine Neg (Neg); Benzodiazepine, Urine Neg (Neg); Cocaine, Urine Neg (Neg); MDMA (Ecstacy), Urine Neg (Neg); Methadone, Urine Neg (Neg); Opiate, Urine Neg (Neg); Phencyclidine, Urine Neg (Neg)
[2020-05-01] MEDS ORDERED: POLYETHYLENE (MIRALAX) 17 GM PACK PO PRN (20:13)
[2020-05-01] MEDS ORDERED: LORazepam 1 MG/2 ML VIAL IV STA (21:04)
--- NOTE | 2020-05-01 21:05 | XRay Report ---
XR chest 1V portable CLINICAL HISTORY: pneumomediastinum COMPARISON STUDY: Chest radiograph and chest CT performed earlier today. FINDINGS: Extensive pneumomediastinum and gas extending into the chest wall and neck is similar to ch est CT performed earlier today. A small left pneumothorax has slightly increased in size. Superior pl eural separation measures 6 mm. Right pneumothorax has slightly decreased in size. Cardiac size is no rmal. There is no pleural effusion. There is no consolidation. There is no evidence for pulmonary mell ma. IMPRESSION: 1. No significant change in extensive pneumomediastinum with soft tissue gas extending into the chest wall and neck since prior chest CT. 2. Slight increase in a small left apical pneumothorax. Interval decrease in a small right apical pne umothorax. 3. No pleural effusion. ACT 112: Negative or not required by law. Electronically signed by: Alverto Polo M.D. 05/01/2020 9:03 PM
[2020-05-01] MEDS: SODIUM CHLORIDE 0.45 % 1,000 ML IV SCH (21:12)
[2020-05-01] MEDS ORDERED: PANTOprazole 40 MG in SYRINGE 0 ML IV ONE (21:30)
[2020-05-01] MEDS ORDERED: MULTI-VITAMIN INFUSION 10 ML, THIAMINE HCL 100 MG, FOLIC ACID 1 MG in SODIUM CHLORIDE 0... IV ONE (21:30)
[2020-05-01] MEDS ORDERED: PROCHLORPERAZINE 5 MG in SYRINGE 4 ML IV ONE (21:30)
[2020-05-01] MEDS: FAMOTIDINE 20MG IV PUSH 20 MG/5 ML SYR IV SCH (21:43)
[2020-05-01 21:50] LABS: BUN Creatinine Ratio 16.7 (10-20); Calcium 8.5 mg/dl (8.5-10.1); Creatinine Clr Calc Pharmacy 91.4 ml/min; Est GFR (Non-African American) 86.3; Potassium 3.5 mmol/L (3.5-5.1)
[2020-05-01] MEDS ORDERED: INFLUENZA VIRUS QUAD VACCINE 0.5 ML SYR IM ONE (22:43)
[2020-05-01] MEDS ORDERED: INFLUENZA ADMINISTRATION CHARGE ONE (22:43)
[2020-05-01] MEDS: BENZONATATE 100 MG CAPSULE PO SCH (23:10)
[2020-05-01] MEDS: ONDANSETRON INJ 2 MG/ML 2 ML VIAL IV SCH (23:27)
[2020-05-02] MEDS: ONDANSETRON INJ 2 MG/ML 2 ML VIAL IV SCH ×3 (06:03→17:20)
[2020-05-02] MEDS: SODIUM CHLORIDE 0.45 % 1,000 ML IV SCH ×3 (06:24→22:21)
[2020-05-02] MEDS: FAMOTIDINE 20MG IV PUSH 20 MG/5 ML SYR IV SCH ×2 (08:04→21:48)
[2020-05-02] MEDS: BENZONATATE 100 MG CAPSULE PO SCH ×3 (08:04→21:41)
--- NOTE | 2020-05-02 08:10 | XRay Report ---
XR chest 1V portable HISTORY: Follow-up pneumomediastinum COMPARISON: Chest 05/01/2020. FINDINGS: Redemonstration of the pneumomediastinum with slight improvement in the subcutaneous emphys yudy at the neck base. Tiny bilateral apical pneumothoraces persist. No new focal lung consolidations to suggest pneumonia. The heart is normal in size. No pleural effusions. IMPRESSION: Pneumomediastinum with slight improvement in the subcutaneous emphysema at the neck base. Stable tiny bilateral pneumothoraces. ACT 112: Negative or not required by law. Electronically signed by: Martinez Rodriguez M.D. 05/02/2020 8:09 AM
[2020-05-02] MEDS: PROMETHAZINE HCL 12.5 MG in SODIUM CHLORIDE 0.9% 50 ML IV PRN ×2 (08:12→22:21)
--- NOTE | 2020-05-02 08:18 | Hospitalist Progress Note ---
Date of Service May 02, 2020 Assessment & Plan (1) Pneumomediastinum: 19-year-old male with no significant past medical history presents with concerns of vomiting found to have pneumomediastinum on chest imaging. Uncomplicated spontaneous pneumomediastinum CXR 05/02: Pneumomediastinum with subcutaneous emphysema at the neck base, improved from previous film. Tiny right apical pneumothorax. Chest CT 05/01: Large amount of pneumomediastinum with deep tissue air tracking into the neck, supraclavicular and submandibular distributions distributions, anterior chest wall, paraspinal and central canal distributions of the upper thorax. Additionally, there are small bilateral pneumothoraces, likely secondary to extension of the pneumomediastinum. No definite tracheobronchial or esophageal injury identified. SPM likely secondary to vigorous vomiting Conservative management: analgesia, rest, and avoidance of maneuvers that will increase pulmonary pressure (coughing, emesis). - scheduled 100 mg tessalon perles - scheduled zofran 4 mg IV, compazine 12.5 mg IV PRN Q6H Supplemental O2 to maintain saturations. Patient currently on nonrebreather at 15 L/min Repeat chest x-ray in a.m. Pulmonology consult appreciated - per GI: PPI BID, carafate, famotidine BID Hypokalemia: resolved Secondary to large amounts of emesis up to 4.3 after repletion. - daily bmp to monitor MIGUELINA: resolved Prerenal secondary to dehydration from emesis Creatinine 1.61, down to 0.93 with hydration FEN/GI: full liquid diet, advance as tolerated, PPI BID, 1/2 NS + 20 Kcl @125 ml/hr DVT prophylaxis: low risk, ambulate PRN CODE STATUS: Full code Dispo: Med/surg with tele Admission and Anticipated Discharge Date Admission Date: May 01, 2020 Supervising Physician Co-Signing Physician Notes Attending attestation Pt seen and examined in concert with Dr. Clarke. In agreement with the documented findings as noted in the resident documentation with any exceptions or additions as noted here. Resting in bed after a rough night with increased n/v requiring compazine and ativan, persistent epigastric discomfort and central chest ache. On examination, S1/S2 nl RRR no MCG. CTAB. Abd NT/ND BS+ve. Palpable subQ crepitus c/w pneumomediastinum, improved ausculatatory pneumomediastinum Uncomplicated spontaneous pneumomediastinum - GI and pulmonology consultation appreciated - stable to improved on CXR today - continue O2 supplementation, antiemetic and PPI therapy Nausea/vomiting - ondansetron IV scheduled and can add compazine PRN. PPI therapy Alcohol abuse, acute - s/p electrolyte bag - 15+ twisted teas on halloween - trauma counsellor on moderation when awake MIGUELINA - IV hydration with improvement. Continue 2/2 decreased POI, likely to d/c in AM w/ improvement in nausea. trend BMP in AM Else see resident documentation as noted. Subjective Overnight events: multiple episodes of nausea and emesis requiring zofran, compazine, folic acid+thiamine, ativan for control. This am, sleeping comfortably. Per discussion with mother said his nausea had finally settled down and was feeling better. Did have some abdominal pain with inspiration later in the day. Review of Systems Respiratory: + cough, + pain on inspiration and + pain with cough; no dyspnea Gastrointestinal: + abdominal pain, + nausea and + vomiting Physical Exam Physical Exam: Constitutional: thin, in no apparent distress, sitting comfortably in bed. Eyes: EOMI, pupils equal and reactive bilaterally, no scleral icterus neck: palpable crepitus at base of neck Cardiac: RRR, no murmurs, gallops or rubs. Normal S1, S2. Audible rub at LL sternal border from pneumomediastinum. Pulm: CTA BL, no wheezes, rhonchi, crackles or rubs, moving air well throughout both lungs Abd: soft, nontender, nondistended, normal bowel sounds, no rebound or guarding Results & Data Results & Data ([facility]) Vital Signs (Past 12 Hours) Vital Signs Temp Pulse Pulse Resp BP BP Pulse Ox 05/02/20 07:52 36.9 C 55 L 18 122/77 100 05/02/20 04:00 36.6 C 70 18 125/76 99 05/02/20 02:34 70 05/01/20 23:00 37.0 C 78 18 156/70 H 97 Laboratory Results WBC 10.49 K/uL (4.8-10.8) D 05/02/20 07:41 RBC 4.37 M/uL (4.7-6.1) L 05/02/20 07:41 Hgb 12.9 g/dL (14.0-18.0) L D 05/02/20 07:41 Hct 38.6 % (42-52) L 05/02/20 07:41 MCV 88.3 fL (80-100) D 05/02/20 07:41 MCH 29.5 pg (25-34) 05/02/20 07:41 MCHC 33.4 g/dL (32-36) 05/02/20 07:41 RDW Std Deviation 43.8 fL (36.4-46.3) 05/02/20 07:41 RDW Coeff of Jan 13.5 % (11.5-14.5) 05/02/20 07:41 Plt Count 156 K/uL (130-400) D 05/02/20 07:41 MPV 11.0 fL (7.4-10.4) H 05/02/20 07:41 Immature Gran % (Auto) 0.1 % 05/02/20 07:41 Neut % (Auto) 69.9 % 05/02/20 07:41 Lymph % (Auto) 12.6 % 05/02/20 07:41 Darke % (Auto) 17.3 % 05/02/20 07:41 Eos % (Auto) 0.0 % 05/02/20 07:41 Baso % (Auto) 0.1 % 05/02/20 07:41 Neut # (Auto) 7.33 K/uL (1.4-6.5) H 05/02/20 07:41 Lymph # (Auto) 1.32 K/uL (1.2-3.4) 05/02/20 07:41 Darke # (Auto) 1.82 K/uL (0.11-0.59) H 05/02/20 07:41 Eos # (Auto) 0.00 K/uL (0-0.5) 05/02/20 07:41 Baso # (Auto) 0.01 K/uL (0-0.2) 05/02/20 07:41 Immature Gran # (Auto) 0.01 K/uL (0.00-0.02) 05/02/20 07:41 Neutrophils % (Manual) 86.0 % 05/01/20 12:55 Lymphocytes % (Manual) 2.6 % 05/01/20 12:55 Monocytes % (Manual) 11.4 % 05/01/20 12:55 Neutrophils # (Manual) 18.55 K/uL (1.4-6.5) H 05/01/20 12:55 Total Absolute Neuts 18.55 K/uL (1.4-6.5) H 05/01/20 12:55 Lymphocytes # (Manual) 0.56 K/uL (1.2-3.4) L 05/01/20 12:55 Total Abs Lymphocytes 0.56 K/uL (1.2-3.4) L 05/01/20 12:55 Monocytes # (Manual) 2.46 K/uL (0.11-0.59) H 05/01/20 12:55 ABG pH 7.51 (7.35-7.45) H* 05/01/20 17:40 ABG pCO2 29 mmHg (35-46) L 05/01/20 17:40 ABG pO2 166 mmHg (80-95) H 05/01/20 17:40 ABG HCO3 22 mmol/L (19-24) 05/01/20 17:40 ABG O2 Saturation 99.4 % (90-95) H 05/01/20 17:40 ABG Base Excess 0.4 mEq/L (-9-1.8) 05/01/20 17:40 Tim Test Pos (Pos) 05/01/20 17:40 Barometric Pressure 735.0 mm/Hg 05/01/20 17:40 Oxygen Given 5 L 05/01/20 17:40 Sodium 141 mmol/L (136-145) 05/02/20 07:41 Potassium 4.3 mmol/L (3.5-5.1) D 05/02/20 07:41 Chloride 111 mmol/L (98-107) H 05/02/20 07:41 Carbon Dioxide 26 mmol/L (21-32) 05/02/20 07:41 Anion Gap 4.0 (3-11) 05/02/20 07:41 BUN 13 mg/dl (7-18) 05/02/20 07:41 Creatinine 0.93 mg/dl (0.6-1.4) 05/02/20 07:41 Est Cr Clr Drug Dosing 123.6 ml/min 05/02/20 07:41 Est GFR ( Amer) 137.4 05/02/20 07:41 Est GFR (Non-Af Amer) 118.6 05/02/20 07:41 BUN/Creatinine Ratio 14.3 (10-20) 05/02/20 07:41 Glucose 89 mg/dl (70-99) 05/02/20 07:41 Calcium 8.5 mg/dl (8.5-10.1) 05/02/20 07:41 Total Bilirubin 1.1 mg/dl (0.2-1) H 05/01/20 12:55 AST 15 U/L (15-37) 05/01/20 12:55 ALT 31 U/L (12-78) 05/01/20 12:55 Alkaline Phosphatase 120 U/L (45-117) H 05/01/20 12:55 Total Protein 9.5 gm/dl (6.4-8.2) H 05/01/20 12:55 Albumin 5.5 gm/dl (3.4-5.0) H 05/01/20 12:55 Globulin 4.0 gm/dl (2.5-4.0) 05/01/20 12:55 Albumin/Globulin Ratio 1.4 (0.9-2) 05/01/20 12:55 Amylase 35 U/L (25-115) 05/02/20 10:40 Lipase 55 U/L (73-393) L 05/02/20 10:40 Urine Color Yellow 05/01/20 14:30 Urine Appearance Clear (Clear) 05/01/20 14:30 Urine pH >= 9.0 (4.5-7.5) H 05/01/20 14:30 Ur Specific [place] 1.026 (1.000-1.030) 05/01/20 14:30 Urine Protein 2+ (Negative) H 05/01/20 14:30 Urine Glucose (UA) Negative (Negative) 05/01/20 14:30 Urine Ketones 1+ (Negative) H 05/01/20 14:30 Urine Blood Negative (Negative) 05/01/20 14:30 Urine Nitrite Negative (Negative) 05/01/20 14:30 Urine Bilirubin Negative (Negative) 05/01/20 14:30 Urine Urobilinogen Negative (Negative) 05/01/20 14:30 Ur Leukocyte Esterase Negative (Negative) 05/01/20 14:30 Urine WBC (Auto) 1-5 /hpf (0-5) 05/01/20 14:30 Urine RBC (Auto) 0-4 /hpf (0-4) 05/01/20 14:30 U Hyaline Cast (Auto) 1-5 /lpf (0-5) 05/01/20 14:30 U Epithel Cells (Auto) 5-10 /lpf (0-5) H 05/01/20 14:30 Urine Bacteria (Auto) Negative (Negative) 05/01/20 14:30 Urine Opiates Screen Neg (Neg) 05/01/20 14:52 Ur Methadone, Qual Neg (Neg) 05/01/20 14:52 Urine Barbiturates Neg (Neg) 05/01/20 14:52 Ur Phencyclidine (PCP) Neg (Neg) 05/01/20 14:52 U Amphetamin/Meth Scrn Neg (Neg) 05/01/20 14:52 MDMA (Ecstasy) Screen Neg (Neg) 05/01/20 14:52 U Benzodiazepines Scrn Neg (Neg) 05/01/20 14:52 Ur Cocaine Metabolite Neg (Neg) 05/01/20 14:52 U Marijuana (THC) Screen Pos (Neg) H 05/01/20 14:52 Ethyl Alcohol mg/dL < 3.0 mg/dl (0-3) 05/01/20 18:12 COVID-19 Eval Order Covid19 Done at [facility] 05/01/20 18:00 COVID-19 PCR NEGATIVE (Negative) 05/01/20 18:00 Resident Activity Tracking Resident Involvement: Resident Care Provided Care Provided: Adult Hospital Medicine
[2020-05-02 09:05] LABS: BUN Creatinine Ratio 14.3 (10-20); Calcium 8.5 mg/dl (8.5-10.1); Creatinine Clr Calc Pharmacy 123.6 ml/min; Est GFR (African American) 137.4; Est GFR (Non-African American) 118.6; Potassium 4.3 mmol/L (3.5-5.1)
[2020-05-02 09:08] LABS: Hematocrit (blood only) 38.6 % (42-52); Hemoglobin 12.9 g/dL (14.0-18.0); Mean Corpuscular Hemoglobin 29.5 pg (25-34); Mean Corpuscular Hgb Conc 33.4 g/dL (32-36); Mean Corpuscular Volume 88.3 fL (80-100); Platelet Count 156 K/uL (130-400); RDW Coefficient of Variation 13.5 % (11.5-14.5); RDW Standard Deviation 43.8 fL (36.4-46.3); Red Blood Count 4.37 M/uL (4.7-6.1); White Blood Count 10.49 K/uL (4.8-10.8)
[2020-05-02 09:09] LABS: Basophils # (auto) 0.01 K/uL (0-0.2); Basophils % (auto) 0.1 %; Immature Granulocytes # (auto) 0.01 K/uL (0.00-0.02); Immature Granulocytes % (auto) 0.1 %; Lymphocytes # (auto) 1.32 K/uL (1.2-3.4); Lymphocytes % (auto) 12.6 %; Monocytes # (auto) 1.82 K/uL (0.11-0.59); Monocytes % (auto) 17.3 %; Neutrophils # (auto) 7.33 K/uL (1.4-6.5); Neutrophils % (auto) 69.9 %
--- NOTE | 2020-05-02 10:19 | Gastrointestinal Consultation ---
Date of Consultation May 02, 2020 Assessment & Plan (1) Vomiting: -Presently no evidence of extravasation of contrast from the esophagus, suggesting no current esophageal rupture. Clinical suspicion for Boerhaave's based on this is lower, though would continue to monitor films and patient's clinical picture. -Add Protonix 40 mg BID. -Carafate 1 gm four times daily x 10 days. -Check amylase/lipase given new abdominal discomfort. -Zofran 4 mg q 6 hr prn. -Continue conservative management and supportive care/further treatment from pulmonology and hospitalist service. Supervising Physician Co-Signing Physician Notes Agree with SMILEY Simmons Abd: Soft, NT, ND Continue with current therapy and supportive care Will follow clinical course and make further recommendations as needed. History of Present Illness Reason for Consultation: Pneumomediastinum, Nausea/vomiting Attending Physician: Silverio Verduzco MD History of Present Illness Patient is a 19 yo male without significant past medical history who presented to [facility] after several episodes of forceful vomiting. He reports that he had consumed 15 drinks the previous night. He has not been able to keep food or water down. He reports that after vomiting, he developed epigastric pain that was sharp and stabbing initially, but then became dull and persistent. He had a CT scan of the abdomen/pelvis performed showing pneumomediastium with subcutaneous emphysema. A Chest CT showed small, bilateral pneumothoraces. Of note, there was no extravastation of contrast from the esophagus. He is being cared for by pulmonology along with hospital medicine service. He does note that he has central chest pain that started after his episodes of emesis. He describes this pain as initially being sharp and stabbing but has now progressed to a dull pain. He says it does not radiate anywhere and is located centrally by his mid sternum. There was mild distal esophageal thickening noted on the CT scan as well. He says the pain is increased when he tries to take a deep breath. He endorses some abdominal pain. No CT findings of pancreatitis. Mother is at bedside. Allergies Allergy/AdvReac Type Severity Reaction Status Date / Time No Known Allergies Allergy Unverified 05/01/20 14:53 Home Medications Home Medications Medication Instructions Recorded Confirmed Type No Known Home Medications 05/01/20 05/01/20 History Patient History Medical History (Updated 05/01/20 @ 17:51 by Nettie Clarke MD) No chronic problems No pertinent family history Surgical History (Updated 05/01/20 @ 17:51 by Nettie Clarke MD) No significant past surgical history Social History (Updated 05/01/20 @ 17:52 by Nettie Clarke MD) Smoking Status: Never smoker Hx Alcohol Use: Yes Alcohol type: beer Hx Substance Use: Yes Prescribed Medications: Marijuana Last Used Substance: Days (ago) Preferred Language: Faroese Communication Ability: Effective Coal Getter Required: No Beliefs That Will Affect Care: None Current Living Situation: Other Current Living Situation Comment: [employer] current occupational status: student Other Information That Helps Us Care for You: No Feels Safe at Home: Yes Safety Concerns: Feels Safe At This Time Assistive Devices: None Review of Systems Constitutional: no fever and no chills Respiratory: no cough and no dyspnea Cardiovascular: + chest pain Gastrointestinal: + abdominal pain Musculoskeletal: no problem reported Integumentary: no problem reported Psychiatric: no problem reported Endocrine: no problem reported Physical Exam Constitutional: WD/WN, vitals as above Neck: normal visual inspection Respiratory: no respiratory distress Cardiovascular: Extremities: no edema Gastrointestinal (Abdomen): Inspection/Auscultation: abdomen normal to inspection Musculoskeletal: Head/Neck/Chest: normocephalic Skin: no rashes Psychiatric: A+Ox3, euthymic affect Results & Data ([facility]) Vital Signs (Past 12 Hours) Vital Signs Temp Pulse Pulse Resp BP BP Pulse Ox 05/02/20 09:07 66 05/02/20 07:52 36.9 C 55 L 18 122/77 100 05/02/20 04:00 36.6 C 70 18 125/76 99 05/02/20 02:34 70 05/01/20 23:00 37.0 C 78 18 156/70 H 97 PG Care Time/CCT Total # of Minutes Spent Total Time Spent with Patient: Total time spent is greater than 50% in coordination of care (as documented) at patient's floor/unit and/or counseling patient: Coding Level of Care Code 39833 Inpt Consult Level 4 Diagnoses Vomiting R11.10 Nausea presence: unspecified Vomiting Intractability: unspecified Vomiting type: unspecified (1) Vomiting Nausea presence: unspecified Vomiting Intractability: unspecified Vomiting type: unspecified Qualified Code(s): R11.10 - Vomiting, unspecified
[2020-05-02] MEDS: PANTOprazole 40 MG in SYRINGE 0 ML IV SCH ×2 (11:03→21:41)
[2020-05-02 11:17] LABS: Amylase 35 U/L (25-115); Lipase 55 U/L (73-393)
[2020-05-02] MEDS ORDERED: ACETAMINOPHEN 325 MG TAB PO PRN (11:22)
[2020-05-02] MEDS: SUCRALFATE 1 GM/10 ML UDC PO SCH ×3 (12:00→21:41)
--- NOTE | 2020-05-02 15:02 | Pulmonology Progress Note ---
Date of Service May 02, 2020 Assessment & Plan (1) Pneumomediastinum: CT chest without contrast 05/01/2020 personally reviewed: starting from the Significant subcu emphysema appreciated upper neck going into the upper belly. There is significant pneumomediastinum appreciated. There is also lucency in the bilateral upper lobes I do not think this is pneumothorax this is most likely extension of the pneumomediastinum presenting as if.. No groundglass opacities appreciated. No mediastinal lymphadenopathy --Spontaneous pneumomediastinum Likely from retching Gastrografin did not extravasate into the pleural space making the possibility of Boerhaave's very low. Sofia-Hill tear is a possibility. Conservative management. 100% nonrebreather. Avoid any measures which will increase intrathoracic pressure. Recommend no usage of high flow or BiPAP. Antitussive medication, antiemetics as needed Leukocytosis is likely reactive. No infiltrate appreciated on the CAT scan. Ethanol level was negative on admission, UDS was positive for marijuana Plan: Chest x-ray 05/02/2020: Pneumomediastinum is still appreciated along with subcu emphysema. Patient states that he gets nauseous on using nonrebreather. Recommended to the patient in the presence of his mother to give nonrebreather another try and if he gets nauseous again then we will discontinue it. Continue with daily chest x-rays. Patient cannot have any strenuous activity for at least 3 to 4 weeks. Avoid smoking, alcohol. Please note the above document was generated using voice recognition software. It may contain grammatical, syntax or spelling errors.Any formal questions or concerns about the content, text or information contained within the body of this dictation should be directly addressed to the provider for clarification. Admission and Anticipated Discharge Date Admission Date: May 01, 2020 Subjective Patient seen and examined at bedside. No acute distress, no adverse events overnight. Patient was sleeping when I entered the room. Patient's mom was present bedside. He is feeling better after coming to the hospital. He gets nauseous on and off has not thrown up. Retrosternal chest pain is decreased in intensity. He denies any shortness of breath. He was 100% nonrebreather but he says that the nonrebreather was making him nauseous there is a reason he is on nasal cannula right now. Review of Systems Review of Systems: All systems reviewed & are unremarkable except as noted in Subjective Physical Exam Physical Exam: Constitutional: No acute distress HEENT: EOMI, PERRLA, subcu crepitus appreciated going anterior chest to the neck Respiratory system: Good air entry bilaterally, no wheeze, no rhonchi, no crackles CVS: S1-S2 positive, no murmurs or gallops Abdomen: Soft, nontender, nondistended, positive bowel sounds x4 Extremities: +2 pulses bilaterally radialis/ dorsalis pedis, no cyanosis, no edema Neuro: Awake alert oriented x3 Psych: Normal mood and affect G/U: No Hyman Skin: no rashes, warm and dry Lymphatic: no cervical or axillary lymphadenopathy Results & Data Results & Data ([facility]) Vital Signs (Past 12 Hours) Vital Signs Temp Pulse Pulse Resp BP BP Pulse Ox 05/02/20 12:00 36.9 C 69 16 116/79 99 05/02/20 09:07 66 05/02/20 07:52 36.9 C 55 L 18 122/77 100 05/02/20 04:00 36.6 C 70 18 125/76 99 05/02/20 07:41 05/02/20 07:41 PG Care Time/CCT Total # of Minutes Spent Total Time Spent with Patient: Total time spent is greater than 50% in coordination of care (as documented) at patient's floor/unit and/or counseling patient: Coding Level of Care Code 11880 Subseq Hosp Care Lvl 3 Diagnoses Pneumomediastinum J98.2
[2020-05-03] MEDS: ONDANSETRON INJ 2 MG/ML 2 ML VIAL IV SCH ×4 (01:11→17:56)
[2020-05-03] MEDS: SODIUM CHLORIDE 0.45 % 1,000 ML IV SCH ×2 (05:34→13:46)
[2020-05-03 06:28] LABS: Basophils # (auto) 0.02 K/uL (0-0.2); Basophils % (auto) 0.4 %; Eosinophils # (auto) 0.05 K/uL (0-0.5); Hematocrit (blood only) 40.1 % (42-52); Hemoglobin 13.1 g/dL (14.0-18.0); Lymphocytes # (auto) 1.44 K/uL (1.2-3.4); Lymphocytes % (auto) 28.8 %; Mean Corpuscular Hgb Conc 32.7 g/dL (32-36); Mean Corpuscular Volume 88.9 fL (80-100); Mean Platelet Volume 10.8 fL (7.4-10.4); Monocytes # (auto) 0.84 K/uL (0.11-0.59); Monocytes % (auto) 16.8 %; Neutrophils # (auto) 2.65 K/uL (1.4-6.5); Platelet Count 143 K/uL (130-400); RDW Coefficient of Variation 13.2 % (11.5-14.5); RDW Standard Deviation 43.1 fL (36.4-46.3); Red Blood Count 4.51 M/uL (4.7-6.1)
[2020-05-03 06:53] LABS: BUN Creatinine Ratio 10.8 (10-20); Calcium 8.5 mg/dl (8.5-10.1); Creatinine Clr Calc Pharmacy 136.8 ml/min; Est GFR (African American) 147.1; Est GFR (Non-African American) 126.9; Potassium 3.7 mmol/L (3.5-5.1)
--- NOTE | 2020-05-03 07:44 | XRay Report ---
XR chest 1V portable HISTORY: 19 years-old Male pneumomediastinum follow-up study in a patient with pneumomediastinum COMPARISON: Chest radiograph 05/02/2020 TECHNIQUE: Portable AP view of the chest FINDINGS: Moderately decreased amount of pneumomediastinum and deep tissue air within the neck and supraclavicu lar distributions. The previously noted tiny bilateral apical pneumothoraces are not well visualized. Interval development of ill-defined right lung base opacities. No pleural effusion or overt pulmonar y edema. Bones appear normal. IMPRESSION: 1. Moderate improvement of the pneumomediastinum, subcutaneous emphysema and deep tissue air of the s upraclavicular distributions and neck base. 2. Nonvisualization of the previously described pneumothoraces. 3. Interval development of ill-defined right lung base opacities, possibly atelectatic. ACT 112: Negative or not required by law. The above report was generated using voice recognition software. It may contain grammatical, syntax o r spelling errors. Electronically signed by: Gabriel Evans M.D. 05/03/2020 7:43 AM
[2020-05-03] MEDS: FAMOTIDINE 20MG IV PUSH 20 MG/5 ML SYR IV SCH (08:41)
[2020-05-03] MEDS: SUCRALFATE 1 GM/10 ML UDC PO SCH ×2 (08:41→13:13)
[2020-05-03] MEDS: BENZONATATE 100 MG CAPSULE PO SCH ×2 (08:41→13:47)
[2020-05-03] MEDS: PANTOprazole 40 MG in SYRINGE 0 ML IV SCH (09:00)
--- NOTE | 2020-05-03 09:33 | Hospitalist Progress Note ---
Date of Service May 03, 2020 Assessment & Plan (1) Pneumomediastinum: 19-year-old male with no significant past medical history presents with concerns of vomiting found to have pneumomediastinum on chest imaging. Uncomplicated spontaneous pneumomediastinum CXR 05/02: Pneumomediastinum with subcutaneous emphysema at the neck base, improved from previous film. Tiny right apical pneumothorax. Chest CT 05/01: Large amount of pneumomediastinum with deep tissue air tracking into the neck, supraclavicular and submandibular distributions distributions, anterior chest wall, paraspinal and central canal distributions of the upper thorax. Additionally, there are small bilateral pneumothoraces, likely secondary to extension of the pneumomediastinum. No definite tracheobronchial or esophageal injury identified. SPM likely secondary to vigorous vomiting Conservative management: analgesia, rest, and avoidance of maneuvers that will increase pulmonary pressure (coughing, emesis). - scheduled 100 mg tessalon perles - scheduled zofran 4 mg IV, compazine 12.5 mg IV PRN Q6H Supplemental O2 to maintain saturations. Patient currently on nonrebreather at 15 L/min Repeat chest x-ray in a.m. Pulmonology consult appreciated - per GI: PPI BID, carafate, famotidine BID Hypokalemia: resolved Secondary to large amounts of emesis up to 4.3 after repletion. - daily bmp to monitor MIGUELINA: resolved Prerenal secondary to dehydration from emesis Creatinine 1.61, down to 0.93 with hydration FEN/GI: full liquid diet, advance as tolerated, PPI BID, 1/2 NS + 20 Kcl @125 ml/hr DVT prophylaxis: low risk, ambulate PRN CODE STATUS: Full code Dispo: Med/surg with tele Admission and Anticipated Discharge Date Admission Date: May 01, 2020 Results & Data Results & Data ([facility]) Vital Signs (Past 12 Hours) Vital Signs Temp Pulse Pulse Resp BP Pulse Ox 05/03/20 07:38 36.3 C L 43 L 20 133/81 100 05/03/20 03:12 36.6 C 55 L 18 131/80 100 05/03/20 00:03 36.8 C 53 L 19 124/81 99 05/03/20 00:00 56 L
--- NOTE | 2020-05-03 10:23 | Gastroenterology Progress Note ---
Date of Service May 03, 2020 Assessment & Plan (1) Vomiting: Resolved. -Continue Protonix 40 mg BID. -Continue Carafate 1 gm four times daily x 10 days. (2) Pneumomediastinum: -Treatment per primary team and pulmonology. Admission and Anticipated Discharge Date Admission Date: May 01, 2020 Supervising Physician Co-Signing Physician Notes Agree with SMILEY Simmons Abd: Soft, NT, ND, +BS Continue current therapy and supportive care Subjective Patient is a 19 yo male with pneumomediastinum. The patient reports improvement of his abdominal pain and has had no further vomiting. Xray indicates improvement of pneumomediastinum. He denies new complaints. He continues on a non-rebreather. Review of Systems Constitutional: no fever and no chills Respiratory: no cough and no dyspnea Cardiovascular: no chest pain Gastrointestinal: no abdominal pain, no nausea, no vomiting and no blood in stools Physical Exam Constitutional: well developed Respiratory: no respiratory distress Cardiovascular: Extremities: no edema Psychiatric: A+Ox3, euthymic affect Results & Data Results & Data ([facility]) Vital Signs (Past 12 Hours) Vital Signs Temp Pulse Pulse Resp BP Pulse Ox 05/03/20 07:38 36.3 C L 43 L 20 133/81 100 05/03/20 03:12 36.6 C 55 L 18 131/80 100 05/03/20 00:03 36.8 C 53 L 19 124/81 99 05/03/20 00:00 56 L PG Care Time/CCT Total # of Minutes Spent Total Time Spent with Patient: Total time spent is greater than 50% in coordination of care (as documented) at patient's floor/unit and/or counseling patient: Coding Level of Care Code 32883 Subseq Hosp Care Lvl 2 Diagnoses Vomiting R11.10 Nausea presence: unspecified Vomiting Intractability: unspecified Vomiting type: unspecified Pneumomediastinum J98.2 (1) Vomiting Nausea presence: unspecified Vomiting Intractability: unspecified Vomiting type: unspecified Qualified Code(s): R11.10 - Vomiting, unspecified
--- NOTE | 2020-05-03 12:40 | Pulmonology Progress Note ---
Date of Service May 03, 2020 Assessment & Plan (1) Pneumomediastinum: CT chest without contrast 05/01/2020 personally reviewed: starting from the Significant subcu emphysema appreciated upper neck going into the upper belly. There is significant pneumomediastinum appreciated. There is also lucency in the bilateral upper lobes I do not think this is pneumothorax this is most likely extension of the pneumomediastinum presenting as if.. No groundglass opacities appreciated. No mediastinal lymphadenopathy --Spontaneous pneumomediastinum Likely from retching Gastrografin did not extravasate into the pleural space making the possibility of Boerhaave's very low. Sofia-Hill tear is a possibility. Conservative management. 100% nonrebreather. Avoid any measures which will increase intrathoracic pressure. Recommend no usage of high flow or BiPAP. Antitussive medication, antiemetics as needed Leukocytosis is likely reactive. No infiltrate appreciated on the CAT scan. Ethanol level was negative on admission, UDS was positive for marijuana Plan: Chest x-ray 05/03/2020: Significant improvement in subcu emphysema as well as pneumomediastinum. Continue with nonrebreather till evening. Patient can be discharged home from pulmonary perspective. He needs to follow-up with x-ray in 3-4 days with pulmonary. Avoid any exertion for at least 3-4 weeks. No smoking, vaping or drinking. No further recommendations from pulmonary perspective. Will sign off. Recall if needed. Please note the above document was generated using voice recognition software. It may contain grammatical, syntax or spelling errors.Any formal questions or concerns about the content, text or information contained within the body of this dictation should be directly addressed to the provider for clarification. Admission and Anticipated Discharge Date Admission Date: May 03, 2020 Subjective Patient seen and examined at bedside. No acute distress, no adverse events overnight. Patient's mother was present at bedside at the time of examination. Denies any chest pain, no nausea, no vomiting. On nonrebreather. Feeling much better. No headache, no dizziness, no blurry vision. Review of Systems Review of Systems: All systems reviewed & are unremarkable except as noted in Subjective Physical Exam Physical Exam: Constitutional: No acute distress HEENT: EOMI, PERRLA, subcu crepitus appreciated going anterior chest to the neck has decreased Respiratory system: Good air entry bilaterally, no wheeze, no rhonchi, no crackles CVS: S1-S2 positive, no murmurs or gallops Abdomen: Soft, nontender, nondistended, positive bowel sounds x4 Extremities: +2 pulses bilaterally radialis/ dorsalis pedis, no cyanosis, no edema Neuro: Awake alert oriented x3 Psych: Normal mood and affect G/U: No Hyman Skin: no rashes, warm and dry Lymphatic: no cervical or axillary lymphadenopathy Results & Data Results & Data ([facility]) Vital Signs (Past 12 Hours) Vital Signs Temp Pulse Pulse Resp BP Pulse Ox 05/03/20 11:26 37.2 C 47 L 20 127/84 100 05/03/20 11:03 49 L 05/03/20 07:38 36.3 C L 43 L 20 133/81 100 05/03/20 03:12 36.6 C 55 L 18 131/80 100 05/03/20 06:02 05/03/20 06:02 PG Care Time/CCT Total # of Minutes Spent Total Time Spent with Patient: Total time spent is greater than 50% in coordination of care (as documented) at patient's floor/unit and/or counseling patient: Coding Level of Care Code 47191 Subseq Hosp Care Lvl 3 Diagnoses Pneumomediastinum J98.2
--- NOTE | 2020-05-03 15:52 | Discharge Summary ---
Date of Service May 03, 2020 Admission HPI Per Admitting Provider 19-year-old male with no past medical history presents to the ER after having severe episodes of vomiting that started yesterday morning. States the night before he had had approximately 15 beers when he normally drinks approximately 8-10. He woke up and had multiple episodes of nonbloody nonbilious emesis and was not able to keep any food or water down. He denies knowledge of any sick contacts. Denies any diarrhea or abdominal pain. He states he still feels nauseous. Has not had any episodes like this before. Of note he denies any shortness of breath or trouble breathing that he noticed prior to coming to the ER. He does note that he has central chest pain that started after his episodes of emesis. He describes this pain as initially being sharp and stabbing but has now progressed to a dull pain. He says it does not radiate anywhere and is located centrally by his mid sternum. He says the pain is increased when he tries to take a deep breath. ED course significant for CTAbdomen and pelvis showing partially imaged pneumomediastinum with subcutaneous counseling left anterior chest wall without pneumatosis or pneumoperitoneum. No bowel obstruction or bowel wall thickening. Minimal distal esophageal wall thickening. Chest x-ray confirmed pneumomediastinum and showed a small right apical pneumothorax. CT chest showing a large amount of pneumomediastinum with deep tissue air tracking into the neck supraclavicular and submandibular distributions, anterior chest wall, paraspinal and central canal distributions of the upper thorax. Small bilateral pneumothoraces secondary to the extension of pneumomediastinum. No tracheobronchial or esophageal injury identified. Patient started on Zosyn and placed on 15 L of oxygen via nonrebreather. He will be admitted for evaluation of the pneumomediastinum. Primary Care Provider: NO PCP Admission Exam Per Admitting Provider Constitutional: thin, in no apparent distress, sitting comfortably in bed. Eyes: EOMI, pupils equal and reactive bilaterally, no scleral icterus Face: flushed Cardiac: RRR, no murmurs, gallops or rubs. Normal S1, S2. Audible rub at LL s ternal border from pneumomediastinum. Pulm: CTA BL, no wheezes, rhonchi, crackles or rubs, moving air well throughout both lungs Abd: soft, nontender, nondistended, normal bowel sounds, no rebound or guarding Extremities: 2+ peripheral pulses, no edema Skin: 3 circumscribed small rashes, dry, flat, papular, Neuro: no focal deficits, moving all 4 limbs, A&Ox3 Principal Diagnosis pneumomediastinum, pneumothorax Discharge Exam Constitutional: thin, in no apparent distress, sitting comfortably in bed. Eyes: EOMI, pupils equal and reactive bilaterally, no scleral icterus Cardiac: RRR, no murmurs, gallops or rubs. Normal S1, S2. Neck: improved subcutaneous emphysema Pulm: CTA BL, no wheezes, rhonchi, crackles or rubs, moving air well throughout both lungs, air bubble rub no longer audible Abd: soft, nontender, nondistended, normal bowel sounds, no rebound or guarding Extremities: 2+ peripheral pulses, no edema Neuro: no focal deficits, moving all 4 limbs, A&Ox3 Discharge Data Allergies Allergy/AdvReac Type Severity Reaction Status Date / Time No Known Allergies Allergy Unverified 05/01/20 14:53 Consultations 05/01/20 16:31 ED Decision to Admit Stat 05/01/20 16:32 Consult Pulmonology Stat 05/01/20 20:13 Consult Case Management - Discharge Planning Routine 05/01/20 20:36 Consult Gastroenterology Routine 05/03/20 15:42 Consult Health Information Management Routine Ordered Studies 05/01/20 14:47 CT abd pelvis IV con only Stat 05/01/20 15:33 CT chest wo con Stat Hospital Course (1) Pneumomediastinum: Uncomplicated spontaneous pneumomediastinum: Otherwise healthy male who presented to ER after excessive vomiting secondary to drinking 15 "tall teas" at home and experiencing chest pain in the ER. Found to have a large pneumomediastinum with subcutaneous emphysema at the base of the neck and bilateral apical pneumothoraces on cxr and confirmed on CT imaging. No indication of boerhaave syndrome or bronchial/esophageal rupture. Improved greatly with non-rebreather and GI cocktail to aid nausea. New medications: - Tessalon Perles 100 mg TID - Protonix 40 mg BID - Sucralfate 1 g QID - Zofran ODT 4 mg PRN Advised to not smoke, drink alcohol, or vape to reduce re-injury risk. Also advised to not exercise or exert himself for 4 weeks to allow proper healing. Given that his mom was here to take him home to [place], we advised they follow up with a airport operations duty manager in 1 week and have a CXR done in 3-4 days from discharge. 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 The chest pain was caused by a spontaneous pneumomediastinum, which essentially means that part of your lung popped from the force in your chest. You had a CT scan of your chest and multiple xrays performed to assess the size of the open area. You were seen by both pulmonology and gastroenterology who recommended conservative treatment with medications and breathing support. Multiple xrays have shown improvement in the bubble space, and will continue to improve. It is extremely important that you do not exercise or exert yourself for the next 4 weeks. DO NOT SMOKE CIGARETTES, WEED OR VAPE. DO NOT DRINK ALCOHOL. DO NOT DO OTHER DRUGS OR INHALANTS. Do not go in a plane, over a mountain, or scuba diving until otherwise cleared by pulmonology. You will need to follow up with Pulmonology clinic in 1 week, with an xray 3 to 4 days after discharge. New medications: - protonix (stomach protection) 40 mg BID - sucralfate (stomach protection) 1g 4 times a day - Tessalon Perle (cough suppression) 100 mg TID - Zofran (nausea) as needed Pending Studies at Discharge: No Stand-Alone Forms: My [facility], Work/School Release (Inpt), Smoking Cessation Medications and DC Order Prescriptions: New ondansetron 4 mg tablet,disintegrating 4 mg PO DAILY PRN (Reason: nausea and vomiting) 4 Days Qty: 20 RF: 0 pantoprazole 40 mg tablet,delayed release (DR/EC) 40 mg PO BID 28 Days Qty: 56 RF: 0 sucralfate [Carafate] 100 mg/mL suspension 1 g PO BID Qty: 10 RF: 0 benzonatate [Tessalon Perles] 100 mg capsule 100 mg PO TID PRN (Reason: cough) 30 Days Qty: 90 RF: 0 No Action No Known Home Medications RF: 0 Discharge Orders: Discharge Order (Routine); Ordered 05/03/20 Ordered By: Nettie Garcia/Other Patient Handouts: Pneumothorax (Collapsed Lung) Admission Data Admit Date/Time: 05/03/20 11:06 Attending Provider: Silverio Verduzco Admit Provider: Nettie Clarke Primary Care Provider: PCP,FREDY Other Providers: Jace Palomo ; Sathish Bautista ; Julio Mccain Other Interventions: Discharge Summary Assessment (RN) Last Done: 05/03/20 16:26 Supervising Physician Co-Signing Physician Notes Attending attestation Pt seen and examined in concert with Dr. Clarke. In agreement with the documented findings as noted in the resident documentation with any exceptions or additions as noted here. Significant improvement overall with resolution of central chest/upper chest pain, decreased cough and resolved nausea. On examination, S1/S2 nl RRR no MCG. CTAB. Abd NT/ND BS+ve. Improved palpable subQ crepitus c/w pneumomediastinum, resolved ausculatatory pneumomediastinum Uncomplicated spontaneous pneumomediastinum - GI and pulmonology consultation - will need follow up within 1 wk w/ pulmonology including updated CXR. Continue therapy as noted below for management of exacerbating factors and counseled for avoidance of further irritations to the lung/GI. Gastritis with nausea/vomiting - complete course of PPI therapy with PRN ondansetron for nausea. Alcohol abuse, acute - counseled on avoidance and moderation in the remote future MIGUELINA - IV hydration with resolution 35 minutes was spent on the discharge of this patient including evaluation, counseling and coordination of care for the issues noted. Else see resident documentation as noted. Resident Activity Tracking Resident Involvement: Resident Care Provided Care Provided: Adult [facility]
[2020-05-04 02:46] LABS: Marijuana Quant, GCMS Urine 338 ng/mL (<5)
== END 2020-05-03 18:12 | disposition home or self-care (01) | DRG 200 ==
LOC: ED 12:23 → 2N 12:23